=== PATIENT | male | born 1990 | race Caucasian/White ===

== ENCOUNTER 2019-02-16 19:04 | Emergency (ER) | payer OTHER ==
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
[2019-02-16] MEDS ORDERED: Naproxen TAB* 250 MG PO ONE (20:13)
[2019-02-16] MEDS ORDERED: Cyclobenzaprine TAB* 10 MG PO ONE (20:13)
[2019-02-16 20:49] VITALS: BP 123/93
== END 2019-02-16 20:45 | disposition home or self-care (01) ==
LOC: ED 19:04
DX: S39.012A Strain of muscle, fascia and tendon of lower back, initial encounter (principal); S16.1XXA Strain of muscle, fascia and tendon at neck level, initial encounter; S50.812A Abrasion of left forearm, initial encounter; H53.8 Other visual disturbances; V43.52XA Car driver injured in collision with other type car in traffic accident, initial encounter; Y92.410 Unspecified street and highway as the place of occurrence of the external cause; Z88.1 Allergy status to other antibiotic agents
CPT/HCPCS: 72125; 72131; 99282; A9270-GY